=== PATIENT | male | born 1950 | race Caucasian/White ===

== ENCOUNTER → 2017-07-11 | Outpatient (CLI) | payer MEDICARE | END | disposition home or self-care (01) | LOC: Rad HDHVI 12:38 | PROVIDERS: ATTEND Internal Medicine Cardiovascular Disease | DX: I25.10 Atherosclerotic heart disease of native coronary artery without angina pectoris (principal); I10 Essential (primary) hypertension; E78.00 Pure hypercholesterolemia, unspecified; K74.1 Hepatic sclerosis | CPT/HCPCS: 93306 ==

== ENCOUNTER → 2017-07-12 | Outpatient (CLI) | payer MEDICARE ==
[~2017-07-12] VITALS: Ht 182.9 cm; Wt 83.5 kg
[2017-07-12 12:56] LABS: Basophils # (auto) 0.1 uL; Basophils % (auto) 0.4 % (0.0-2.0); Eosinophils # (auto) 0.1 uL; Eosinophils % (auto) 0.5 % (0.0-7.0); Hematocrit 44.9 % (41.0-53.0); Lymphocytes # (auto) 1.8 uL; Lymphocytes % (auto) 15.4 % (10.0-50.0); Mean Corpuscular Hemoglobin 27.9 pg (28.0-32.0); Mean Corpuscular Hgb Conc. 33.3 g/dL (32.0-36.0); Mean Corpuscular Volume 83.9 fL (80.0-100.0); Monocytes # (auto) 0.9 uL; Monocytes % (auto) 7.2 % (0.0-12.0); Neutrophils # (auto) 9.1 uL; Neutrophils % (auto) 76.5 % (37.0-80.0); Nucleated Red Blood Cells % 0.3 %; Platelet Count (auto) 195 10^3/uL (140-450); Red Cell Distribution Width 14.5 % (11.8-14.3); White Blood Cell 11.9 10^3/uL (4.4-10.8)
[2017-07-12 13:02] LABS: Urine Bilirubin Negative (Negative); Urine Blood Negative /uL (Negative); Urine Color Yellow (Yellow); Urine Glucose Normal (Normal); Urine Ketone 1+ (Negative); Urine Nitrite Negative (Negative); Urine Urobilinogen Normal (Negative)
[2017-07-12 13:10] LABS: Albumin 3.7 g/dL (3.4-5.0); BUN/Creatinine Ratio 11.4; Bilirubin, Total 0.9 mg/dL (0.2-1.0); Calcium 9.4 mg/dL (8.5-10.1); Potassium 4.1 mmol/L (3.5-5.1); Total Protein 7.8 g/dL (6.4-8.2)
== END | disposition home or self-care (01) ==
LOC: Rad HDHVI 07:59
PROVIDERS: ATTEND Internal Medicine Cardiovascular Disease
DX: I10 Essential (primary) hypertension (principal); E11.9 Type 2 diabetes mellitus without complications; D64.9 Anemia, unspecified; E78.5 Hyperlipidemia, unspecified; E55.9 Vitamin D deficiency, unspecified; K74.1 Hepatic sclerosis; E03.9 Hypothyroidism, unspecified; N39.0 Urinary tract infection, site not specified; D51.9 Vitamin B12 deficiency anemia, unspecified; I25.10 Atherosclerotic heart disease of native coronary artery without angina pectoris; Z95.5 Presence of coronary angioplasty implant and graft
CPT/HCPCS: 36415; 78452; 80053; 80061; 81003; 82306; 82607; 83036; 84403; 84439; 84443; 85025; 93017; 96374; A9500

== ENCOUNTER → 2017-07-19 | Outpatient (CLI) | payer MEDICARE ==
[~2017-07-19] MED LIST: ASPI81TA27 PO; INSLANTI SC; METF1000 PO; METO100T87 PO; PRAS10TA6 PO; ROSU10TA16 PO; TELM80TA PO
[2017-07-19 11:15] VITALS: BP 138/60
[2017-07-19 11:30] VITALS: BP 138/115
[2017-07-19 12:15] LABS: Basophils # (auto) 0.1 uL; Basophils % (auto) 1.3 % (0.0-2.0); Eosinophils # (auto) 0.2 uL; Eosinophils % (auto) 2.1 % (0.0-7.0); Hematocrit 43.2 % (41.0-53.0); Hemoglobin 14.6 g/dL (13.5-17.5); Lymphocytes # (auto) 2.1 uL; Lymphocytes % (auto) 26.6 % (10.0-50.0); Mean Corpuscular Hgb Conc. 33.8 g/dL (32.0-36.0); Mean Corpuscular Volume 82.7 fL (80.0-100.0); Mean Platelet Volume 9.5 fL (6.9-10.8); Monocytes # (auto) 0.4 uL; Monocytes % (auto) 4.9 % (0.0-12.0); Neutrophils # (auto) 5.1 uL; Neutrophils % (auto) 65.1 % (37.0-80.0); Platelet Count (auto) 246 10^3/uL (140-450); Red Cell Distribution Width 14.1 % (11.8-14.3); White Blood Cell 7.8 10^3/uL (4.4-10.8)
[2017-07-19 12:32] LABS: INR 0.89 (0.9-1.15); Partial Thromboplastin Time 30.6 sec (22.64-33.71); Prothrombin Time 9.7 sec (9.37-12.3)
[2017-07-19 12:39] LABS: BUN/Creatinine Ratio 14.5; Calcium 9.1 mg/dL (8.5-10.1); Potassium 4.5 mmol/L (3.5-5.1)
== END | disposition home or self-care (01) ==
LOC: Rad HDHVI 11:02
PROVIDERS: ATTEND Internal Medicine Cardiovascular Disease
DX: Z01.818 Encounter for other preprocedural examination (principal); I70.0 Atherosclerosis of aorta; I10 Essential (primary) hypertension; D64.9 Anemia, unspecified; R79.1 Abnormal coagulation profile; E78.5 Hyperlipidemia, unspecified; Z95.5 Presence of coronary angioplasty implant and graft
CPT/HCPCS: 36415; 71020; 80048; 85025; 85610; 85730; 93005; G0463

== ENCOUNTER 2017-09-28 19:17 | Inpatient (IN) | payer BC, MEDICARE ==
[~2017-09-28] VITALS: Ht 182.9 cm; Wt 87.4 kg
[2017-09-28] MEDS ORDERED: cloNIDine HCL 0.1 MG TAB PO ONE (19:45)
[2017-09-28] MEDS ORDERED: MORPHINE SULFATE 4 MG/ML SYR/VIAL IV ONE (20:15)
[2017-09-28] MEDS ORDERED: ONDANSETRON HCL 4 MG/2 ML VIAL IV ONE (20:15)
[2017-09-28 20:33] LABS: Basophils # (auto) 0.1 uL; Basophils % (auto) 0.7 % (0.0-2.0); Eosinophils # (auto) 0.4 uL; Eosinophils % (auto) 3.2 % (0.0-7.0); Hematocrit 47.3 % (41.0-53.0); Hemoglobin 15.7 g/dL (13.5-17.5); Lymphocytes # (auto) 6.1 uL; Mean Corpuscular Hemoglobin 27.2 pg (28.0-32.0); Mean Corpuscular Hgb Conc. 33.2 g/dL (32.0-36.0); Mean Corpuscular Volume 81.8 fL (80.0-100.0); Monocytes # (auto) 0.9 uL; Monocytes % (auto) 6.5 % (0.0-12.0); Neutrophils % (auto) 44.6 % (37.0-80.0); Nucleated Red Blood Cells % 0.2 %; Platelet Count (auto) 260 10^3/uL (140-450); Red Blood Cells 5.78 10^6/uL (4.5-5.90); Red Cell Distribution Width 14.9 % (11.8-14.3); White Blood Cell 13.5 10^3/uL (4.4-10.8)
[2017-09-28 20:51] LABS: Albumin 4.2 g/dL (3.4-5.0); BUN/Creatinine Ratio 13.9; Calcium 9.8 mg/dL (8.5-10.1); Magnesium 2.1 mg/dL (1.6-2.6); Potassium 3.1 mmol/L (3.5-5.1)
[2017-09-28 20:56] LABS: Bilirubin, Total 0.4 mg/dL (0.2-1.0); Total Protein 8.1 g/dL (6.4-8.2)
[2017-09-28] MEDS ORDERED: POTASSIUM CHL 20 Meq TABLET PO ONE (22:15)
[2017-09-28 23:10] LABS: Urine WBC None Seen /hpf (0 - 3)
[2017-09-28 23:18] LABS: Urine Bacteria NONE SEEN /hpf (None Seen); Urine Blood Negative /uL (Negative); Urine Specific Gravity 1.004 (1.001-1.035)
[2017-09-29] MEDS ORDERED: TEMAZEPAM 15 MG CAP PO PRN (00:30)
[2017-09-29] MEDS ORDERED: MORPHINE SULFATE 4 MG/ML SYR/VIAL IV PRN (00:30)
[2017-09-29] MEDS ORDERED: ACETAMINOPHEN 325 MG TAB PO PRN (00:30)
[2017-09-29] MEDS ORDERED: NITROGLYCERIN 0.4 MG SL TAB SL PRN (00:30)
[2017-09-29] MEDS ORDERED: DEXTROSE (50%) 50ML SYRG IV PRN (00:30)
[2017-09-29] MEDS ORDERED: ONDANSETRON HCL 4 MG/2 ML VIAL IV PRN (00:30)
[2017-09-29] MEDS ORDERED: ENOXAPARIN SOD 100 MG/1 ML SYRINGE SC ONE (00:30)
[2017-09-29] MEDS ORDERED: DOCUSATE SOD 100 MG CAP PO PRN (00:30)
[2017-09-29] MEDS ORDERED: HYDROcodone-ACET 5/325MG TAB PO PRN (00:30)
[2017-09-29 01:45] VITALS: BP 123/68
[2017-09-29 02:30] VITALS: BP 123/68
[2017-09-29] MEDS ORDERED: ALBUTEROL SULF 2.5 MG/0.5ML(0.5%) NEB SOLN NEB ONE (02:30)
[2017-09-29] MEDS ORDERED: IPRATROPIUM BROM 0.5 MG/2.5ML INH SOL NEB PRN (02:30)
[2017-09-29 04:58] VITALS: BP 107/60
[2017-09-29] MEDS: InsuLIN REG 1unit/0.01ml Soln (100units/ml) SC SCH ×2 (05:53→11:49)
[2017-09-29] MEDS: ACCU-CHEK COMFORT CURVE STRIP VI SCH ×2 (05:54→11:49)
[2017-09-29 09:00] VITALS: BP 108/64
[2017-09-29] MEDS ORDERED: LOSARTAN POTASSIUM 50 MG TAB PO SCH (10:00)
[2017-09-29] MEDS ORDERED: FAMOTIDINE 20 MG TAB PO SCH (10:00)
[2017-09-29] MEDS ORDERED: ASPirin 81 mg TAB PO SCH (10:00)
[2017-09-29] MEDS ORDERED: PRASUGREL HCL 10 MG TAB PO SCH (10:00)
[2017-09-29] MEDS ORDERED: ENOXAPARIN SOD 40 MG/0.4 ML SYRINGE SC SCH (10:00)
[2017-09-29] MEDS ORDERED: METOPROLOL TARTRATE 50 MG TAB PO SCH (10:00)
[2017-09-29] MEDS ORDERED: NITROGLYCERIN 0.4MG/HR TOPICAL PATCH TD ONE (10:45)
[2017-09-29 11:24] VITALS: BP 107/65
[2017-09-29 12:39] VITALS: BP 105/57
[2017-09-30] MEDS ORDERED: NITROGLYCERIN 0.4MG/HR TOPICAL PATCH TD SCH (10:00)
== END 2017-09-29 14:51 | disposition short-term general hospital (02) | DRG 282 ==
LOC: ER 19:19 → EDBD 19:20 → TELE 19:20 → TELE-EAST 09-29 01:27
PROVIDERS: ADMIT Nurse Practitioner; ATTEND Family Medicine
DX: I21.4 Non-ST elevation (NSTEMI) myocardial infarction (principal); E11.649 Type 2 diabetes mellitus with hypoglycemia without coma; E78.5 Hyperlipidemia, unspecified; I10 Essential (primary) hypertension; I25.119 Atherosclerotic heart disease of native coronary artery with unspecified angina pectoris; Z82.49 Family history of ischemic heart disease and other diseases of the circulatory system; Z95.5 Presence of coronary angioplasty implant and graft; I25.2 Old myocardial infarction
CPT/HCPCS: 36415; 71045; 80053; 81001; 82962; 83735; 83880; 84443; 84484; 85025; 85379; 93005; 96372; 96374; 96375; J2405